=== PATIENT | male | born 1945 | race Caucasian/White ===

== ENCOUNTER 2019-04-23 06:55 | Inpatient (IN) ==
[2019-04-17 13:03] LABS: Basophils # (Auto) 0.04 K/mcL (0.00-0.30); Basophils % (Auto) 0.6 % (0.0-2.0); Eosinophils # (Auto) 0.22 K/mcL (0.00-0.70); Eosinophils % (Auto) 3.1 % (0.0-7.0); Hematocrit 42.4 % (40.1-51.0); Hemoglobin 13.5 g/dL (13.7-17.5); Lymphocytes # (Auto) 1.21 K/mcL (1.50-4.80); Lymphocytes % (Auto) 17.1 % (15.5-49.0); Mean Cell Volume 95.5 fL (80.0-100.0); Mean Corpuscular HGB Conc 31.8 g/dL (31.0-36.0); Mean Platelet Volume 10.7 fL (7.4-10.4); Monocytes # (Auto) 0.44 K/mcL (0.10-0.90); Monocytes % (Auto) 6.2 % (1.0-12.0); Platelet Count 257 K/mcL (140-440); RBC 4.44 M/mcL (4.63-6.08); Red Cell Distribution Width 13.3 % (11.5-14.5); WBC 7.1 K/mcL (4.50-11.00)
[2019-04-17 13:05] LABS: Blood Urea Nitrogen 28 mg/dl (8-23); Calcium 9.7 mg/dl (8.6-10.4); Carbon Dioxide 25 mmol/L (22-30); Chloride 98 mmol/L (96-108); Glomerular Filtration Rate 67; Glucose 118 mg/dL (70-105)
[2019-04-17 13:10] LABS: Estimated Average Glucose(eAG) 137 mg/dL; Hemoglobin A1C 6.4 % HGB (4.0-6.0)
[2019-04-17 13:32] LABS: Prothrombin Time 12.9 sec (11.9-14.5)
[2019-04-17 13:39] LABS: Appearance,Urine CLEAR; Bilirubin,Urine NEG (NEG); Color,Urine YELLOW; Culture Indicated,Urine NO; Glucose,Urine (UA) NEGATIVE (NEG); Ketones,Urine NEG (NEG); Leukocyte Esterase,Urine NEG /uL (NEG); Nitrate,Urine NEG (NEG); Protein,Urine NEG (NEG); Specific Gravity,Urine 1.019 (1.000-1.035); Urine Blood NEG mg/dL (<0.03); Urobilinogen,Urine NEG (NEG)
[~2019-04-23 06:55] MED LIST: IPRATROPIUM/ALBUTEROL 3 ML AMPUL.NEB NEB PRN; PREGABALIN 75 MG CAPSULE PO SCH; SCOPOLAMINE 1 PATCH PATCH TOPICAL PRN; ceFAZolin 2 GM in DEXTROSE 5% IN WATER 50 ML IV SCH; oxyCODONE 10 MG TAB.ER.12H PO SCH
[2019-04-23] MEDS ORDERED: MIDAZOLAM 2 MG/2 ML VIAL IV ONE (09:00)
[2019-04-23] MEDS ORDERED: TRANEXAMIC ACID 1,000 MG/10 ML VIAL IV ONE (09:00)
[2019-04-23] MEDS ORDERED: ESMOLOL 100 MG/10 ML VIAL IV ONE (09:00)
[2019-04-23] MEDS ORDERED: GLYCOPYRROLATE 0.2 MG/ML VIAL IV ONE (09:00)
[2019-04-23] MEDS ORDERED: KETAMINE 100 MG/ML ML IV ONE (09:00)
[2019-04-23] MEDS ORDERED: PHENYLEPHRINE 10 MG/ML VIAL IV ONE (09:00)
[2019-04-23] MEDS ORDERED: PROPOFOL 200 MG/20 ML VIAL IV ONE (09:00)
[2019-04-23] MEDS ORDERED: LIDOCAINE HCL/PF 100 MG/5 ML SYRINGE IV ONE (09:00)
[2019-04-23] MEDS ORDERED: DEXAMETHASONE 10 MG/ML VIAL IV ONE (09:00)
[2019-04-23] MEDS ORDERED: ROPIVACAINE HCL/PF 30 ML VIAL IJ ONE (09:00)
[2019-04-23] MEDS ORDERED: fentaNYL 250 MCG/5 ML VIAL IV ONE (09:00)
[2019-04-23] MEDS ORDERED: ONDANSETRON 4 MG/2 ML VIAL IV ONE (09:00)
[2019-04-23] MEDS ORDERED: GENTAMICIN SULFATE 800 MG/20 ML VIAL IR ONE (09:23)
--- NOTE | 2019-04-23 10:28 | Brief Operative Note ---
Date of procedure: 04/23/19 Pre-op diagnosis: left shoulder failed rotator cuff repair with oa Post-op diagnosis: same Procedure: left reverse total shoulder arthroplasty Grafts/Implants: Yes Anesthesia: GETA Complications: none Surgeon: Mikhail Yoon Energy Sales Broker: Kevin Roman Estimated blood loss (cc): 150 Specimens Removed/Pathology: none sent Condition: stable Disposition: PACU
--- NOTE | 2019-04-23 10:29 | Discharge Summary ---
Ortho Discharge - TSA - Patient Instructions Diet: Regular Diet Activity: non weight bearing Total Shoulder Protocol: Leave immobilizer in place except for bathing and ROM. Abduction pillow. Continue to wear sling until seen by physician. Codman Pendulum : These exercises use momentum produced by your body to move your shoulder joint. Bend your knees and shift your weight to your front leg, then back, allowing your arm to swing in the same directions. Using the same technique, alternately shift your weight between your right and left legs, allowing your arm to swing from side to side. These exercises are also performed in counterclockwise and clockwise circular motions. Typically these exercises are performed several times per day, for a set number repetitions or minutes, such as 20 times in a row or 5 minutes at a time. Dressing Care: May shower in 2 days - Follow Up Plan Disposition: Home, Self-Care Prognosis: Good Rehab Potential: Good I certify that the patient requires SNF services: No Overall status at discharge: patient is progressing back to baseline
[2019-04-23] MEDS ORDERED: TADALAFIL 20 MG PO SCH (10:30)
[2019-04-23] MEDS ORDERED: FLEETS ADULT ENEMA PR PRN (10:31)
[2019-04-23] MEDS ORDERED: ONDANSETRON 4 MG/2 ML VIAL IV PRN ×2 (10:31→11:00)
[2019-04-23] MEDS ORDERED: MAGNESIUM HYDROXIDE 30 ML ORAL.SUSP PO PRN (10:31)
[2019-04-23] MEDS ORDERED: DEXTROSE 50% 50 ML VIAL IV PRN (10:31)
[2019-04-23] MEDS ORDERED: POLYETHYLENE GLYCOL 3350 17 GM PACKET PO PRN (10:31)
[2019-04-23] MEDS ORDERED: TRANEXAMIC ACID 1,000 MG/10 ML VIAL IV SCH (10:31)
[2019-04-23] MEDS ORDERED: BISACODYL 10 MG SUPP.RECT PR PRN (10:31)
[2019-04-23] MEDS ORDERED: DEXTROSE 31 GM ORAL.SUSP PO PRN (10:31)
[2019-04-23] MEDS ORDERED: BENZOCAINE/MENTHOL 1 LOZENGE PO PRN (10:31)
[2019-04-23] MEDS ORDERED: HYDROcodone/APAP 10/325MG TABLET PO PRN (10:31)
[2019-04-23] MEDS ORDERED: ONDANSETRON 4 MG ODT TABLET SL PRN (10:31)
[2019-04-23] MEDS ORDERED: METHOCARBAMOL 750 MG TABLET PO PRN (10:31)
[2019-04-23] MEDS ORDERED: KETOROLAC 15 MG/ML VIAL IV PRN (11:00)
[2019-04-23] MEDS ORDERED: fentaNYL 100 MCG/2 ML VIAL IV PRN (11:00)
[2019-04-23] MEDS ORDERED: METHOCARBAMOL 1,000 MG/10 ML VIAL IV PRN (11:00)
[2019-04-23] MEDS ORDERED: HYDROmorphone 2 MG/ML VIAL IV PRN (11:00)
[2019-04-23] MEDS ORDERED: IPRATROPIUM/ALBUTEROL 3 ML AMPUL.NEB NEB PRN (11:00)
[2019-04-23] MEDS ORDERED: LACTATED RINGERS 1,000 ML IV SCH (11:00)
[2019-04-23] MEDS ORDERED: ACETAMINOPHEN 1,000 MG/100 ML BOTTLE IV ONE (11:00)
[2019-04-23] MEDS ORDERED: MEPERIDINE 25 MG/ML SYRINGE IV PRN (11:00)
[2019-04-23] MEDS: KETOROLAC 15 MG/ML VIAL IV PRN (11:10)
--- NOTE | 2019-04-23 11:10 | Operative Note ---
DATE OF OPERATION: 04/23/2019 PREOPERATIVE DIAGNOSES: 1. Left shoulder failed rotator cuff repair and superior capsular reconstruction. 2. Left shoulder advancing osteoarthritis. POSTOPERATIVE DIAGNOSES: 1. Left shoulder failed rotator cuff repair and superior capsular reconstruction. 2. Left shoulder advancing osteoarthritis. PROCEDURE: Left reverse total shoulder arthroplasty. SURGEON: Sharita Yoon M.D. OENOLOGIST SURGEON: Kevin Roman PA-C. This provider's expertise and technical skill were required throughout the case. The GRISEL assisted with preoperative coordination, intraoperative retraction, wound closure, dressing and splint application, as well as postoperative documentation and care coordination. ANESTHESIA: General. ESTIMATED BLOOD LOSS: 150 mL COMPLICATIONS: None noted. SPECIMENS REMOVED: None. DRAINS: None. IMPLANTS: DePuy Delta Xtend cementless metaglene KNOWLES coated, DePuy Delta Xtend locking metaglene screw 4.5 x 30 x2, 4.5 x 18 nonlocking x2, DePuy Delta Xtend eccentric glenosphere 38 mm, DePuy Delta Xtend humeral stem size 12 KNOWLES coated cementless, DePuy Delta Xtend modular eccentric epiphysis size 1 left KNOWLES coated cementless, DePuy Delta Xtend humeral polyethylene cup standard 38 +6. INDICATIONS: The patient has had a longstanding history of worsening pain in the shoulder that has failed conservative treatment. Radiographs have confirmed advanced degenerative joint disease and a failed rotator cuff. After a long discussion about treatment options, the patient elected to proceed with a reverse total shoulder arthroplasty. The risks and benefits were discussed with the patient in detail including, but not limited to, the risks of anesthesia, problems with the heart or lungs related to anesthesia, infection, compromise or injury to the nerves and blood vessels, deep venous thrombosis, pulmonary embolism, pneumonia, continued pain after surgery, worsening pain or symptoms after surgery, swelling, loss of motion, instability, fracture, arm length discrepancy, and need for repeat surgery. DESCRIPTION OF PROCEDURE: The patient was seen in the preanesthesia waiting room where all questions were answered and the correct side and site were identified and marked. The patient was transferred to the operating room and administered the anesthetic and given preoperative antibiotics. A timeout was then called. The patient was placed in the modified beach chair position with all prominences well padded. The extremity was prepped and draped from the fingers up to the neck. A standard deltopectoral skin incision was created. Dissection was carried down to the deltopectoral groove and the cephalic vein was isolated medially and retracted laterally with the deltoid. Retractors were placed and the coracobrachialis was split up to the coracoacromial ligament allowing retraction of the conjoined tendon. We split the subscapularis 1 cm medial to the bicipital groove and extended the split into the rotator interval. This was tagged for later repair. The supraspinatus and infraspinatus had been previously torn and retracted. A capsular release was performed in a posterior subperiosteal direction along the humerus. The humeral head was then dislocated. We established intramedullary access and hand reamed up to get good cortical chatter with the [employer] Delta XTEND reverse total shoulder instrumentation. We then used the intramedullary guide and set to about 5 degrees of retroversion. The proximal humerus cut was performed and osteophytes were removed. A metal protector plate was then placed. Attention was then turned to the glenoid. Retractors were placed for optimal visualization and the labrum was excised in its entirety. A centralizing Steinmann pin was placed just into the posterior inferior quadrant in a standard fashion. We reamed over the pin to remove all the cartilage and get to a good base for the prosthesis. The drill was then placed over for the central peg. A cementless Metaglene was then impacted into place. We then drilled, measured, and placed the four screws starting inferior, then superior, then anterior, and finally posterior. The superior locking screw was lined up at the base of the coracoid process. We then impacted the head onto the Metaglene and tightened down in a standard fashion. Attention was then turned back to the humerus. Proximal reaming was performed off the intramedullary guide into the humeral head, using the eccentric guide to allow best coverage. We again set version and broached up to a stable implant. Trials were placed and good tension, motion, and stability were obtained at this point. Trials were removed and the final press fit femoral prosthesis was impacted into place with measured version. The final polyethylene was placed and the shoulder was reduced and again checked for motion, tension, and stability. We irrigated with 3 liters of antibiotic saline and closed the subscapularis with # 2 FiberWire. We irrigated again and closed the deltopectoral interval with several # 0 Vicryl figure of eight sutures. The subcutaneous layer was closed with 2-0 Vicryl and the skin was closed with Dermabond. A sterile pressure dressing was applied and the patient was placed into an abduction sling. All needle and sponge counts were correct. The patient was transferred to the recovery room in stable condition. JDamian:cooper Job ID: [id number] Doc ID: [id number] Sharita Yoon MD
[2019-04-23] MEDS: LACTATED RINGERS 1,000 ML IV SCH ×2 (11:15→18:52)
--- NOTE | 2019-04-23 11:57 | XRay Report ---
CLINICAL INFORMATION: Post-Op Total Shoulder COMPARISON: None. FINDINGS: Total shoulder prosthesis in anatomic alignment. No osseous abnormality. Soft tissue swelling seen as expected. IMPRESSION: Negative Interpreted and Authenticated by: Mikhail Fonseca 04/23/19
[2019-04-23] MEDS: INSULIN LISPRO 1 UNIT/0.01 ML UNIT SQ SCH ×3 (12:39→19:25)
[2019-04-23] MEDS ORDERED: TAMSULOSIN 0.4 MG CAPSULE PO ONE (15:54)
[2019-04-23] MEDS: hydrALAZINE 25 MG TABLET PO SCH ×2 (15:56→19:21)
[2019-04-23] MEDS: 0.9 % SODIUM CHLORIDE 10 ML SYRINGE IV SCH ×2 (15:56→19:25)
[2019-04-23] MEDS: CARVEDILOL 6.25 MG TABLET PO SCH ×2 (16:59→18:18)
[2019-04-23] MEDS: metFORMIN 850 MG TABLET PO SCH (16:59)
[2019-04-23] MEDS: ceFAZolin 1 GM VIAL IV SCH (18:26)
[2019-04-23] MEDS: DOCUSATE SODIUM 100 MG CAPSULE PO SCH (19:20)
[2019-04-23] MEDS ORDERED: SENNOSIDES 1 TABLET PO SCH (21:00)
[2019-04-23] MEDS ORDERED: amLODIPine 10 MG TABLET PO SCH (21:00)
[2019-04-24] MEDS: 0.9 % SODIUM CHLORIDE 10 ML SYRINGE IV SCH ×2 (02:00→04:50)
[2019-04-24] MEDS: ceFAZolin 1 GM VIAL IV SCH (02:00)
[2019-04-24] MEDS: LACTATED RINGERS 1,000 ML IV SCH (02:52)
[2019-04-24] MEDS: KETOROLAC 15 MG/ML VIAL IV PRN (04:51)
[2019-04-24 07:37] LABS: Hematocrit 36.2 % (40.1-51.0); Hemoglobin 11.7 g/dL (13.7-17.5)
--- NOTE | 2019-04-24 07:56 | Orthopedic Progress Note ---
Subjective Patient information: Note initiated : 04/24/19 at 7:54 am Service Date, if different from initiated Date: [] Patient: Jose Leung 73 y/o M admitted on 04/23/19 for Left Reverse Total Shoulder Arthroplasty. Chief Complaint: [] Interval history: doing well. no complaints Objective Vital signs: Vital Signs Temp Pulse Pulse Resp BP Pulse Ox 04/24/19 02:33 98.4 F 91 H 20 147/83 94 04/23/19 22:46 97.9 F 98 H 18 113/68 95 04/23/19 19:11 98.1 F 111 H 20 135/69 91 04/23/19 19:10 16 04/23/19 17:26 98 F 113 H 16 142/81 93 04/23/19 13:32 93 H 143/82 97 04/23/19 13:17 89 137/77 97 04/23/19 12:47 92 H 143/79 96 04/23/19 12:32 97 H 94 04/23/19 12:17 90 147/81 96 04/23/19 12:02 88 151/80 96 04/23/19 11:47 89 151/81 94 04/23/19 11:33 98.3 F 88 16 154/79 93 04/23/19 11:20 87 16 149/77 94 04/23/19 11:05 88 14 159/85 96 04/23/19 11:00 89 14 134/72 100 04/23/19 10:55 88 12 122/62 100 04/23/19 10:50 97.0 F 83 12 120/65 100 Intake and Output 04/23/19 04/24/19 04/24/19 21:59 05:59 13:59 Intake Total 240 500 Output Total 200 200 Balance 40 300 Intake: Oral 240 500 Output: Void Amount 200 200 Other: Meal Dinner Percent of Meal Consumed 100% Feeding Ability Independent Urine Appearance Clear Clear Urine Color Pale Pale Urine Odor Normal Normal # Voids 1 Weight 207 lb 4.8 oz Intake & Output: Intake & Output 04/23/19 04/24/19 04/24/19 21:59 05:59 13:59 Intake Total 240 500 Output Total 200 200 Balance 40 300 Weight 207 lb 4.8 oz Intake: Oral 240 500 Output: Void Amount 200 200 Other: Meal Dinner Percent of Meal Consumed 100% Feeding Ability Independent Urine Appearance Clear Clear Urine Color Pale Pale Urine Odor Normal Normal # Voids 1 Incision: Yes healing Incision clean and dry: Yes Dressing: Yes clean, Yes dry, Yes intact Weight bearing status: full Neurological exam IM: No abnormal gait, Yes alert, Yes oriented X3, Yes motor sensory intact, Yes neurovascular intact Extremities exam IM: No calf tenderness, Yes Foot pink and warm, Yes neurovascular intact - Labs CBC & BMP: 04/24/19 05:50 04/17/19 09:45 Labs: Orthopedic Labs 04/17/19 09:45 PT 12.9 INR 1.0 04/24/19 04/17/19 05:50 09:45 Hgb 11.7 L 13.5 L Hct 36.2 L 42.4 Assessment and Plan (1) Rotator cuff tear A: s/p reverse tsa P: doing well pain control nwb sling home today Status: Acute
[2019-04-24] MEDS: DOCUSATE SODIUM 100 MG CAPSULE PO SCH (08:11)
[2019-04-24] MEDS: CARVEDILOL 6.25 MG TABLET PO SCH (08:11)
[2019-04-24] MEDS: hydrALAZINE 25 MG TABLET PO SCH (08:11)
[2019-04-24] MEDS: metFORMIN 850 MG TABLET PO SCH (08:12)
[2019-04-24] MEDS: INSULIN LISPRO 1 UNIT/0.01 ML UNIT SQ SCH (08:16)
[2019-04-24] MEDS ORDERED: TESTOSTERONE TOPICAL SCH (09:00)
[2019-04-24] MEDS ORDERED: TAMSULOSIN 0.4 MG CAPSULE PO SCH (09:00)
[2019-04-24] MEDS ORDERED: LISINOPRIL 20 MG TABLET PO SCH (09:00)
[2019-04-24] MEDS ORDERED: CHLORTHALIDONE 25 MG TABLET PO SCH (09:00)
[2019-04-24] MEDS ORDERED: ASPIRIN 81 MG TAB.CHEW PO SCH (09:00)
[2019-04-24] MEDS ORDERED: ATORVASTATIN 40 MG TABLET PO SCH (09:00)
[2019-04-24] MEDS ORDERED: EZETIMIBE 10 MG TABLET PO SCH (09:00)
[2019-04-24] MEDS ORDERED: PNEUMOCOCCAL 23-VAL P-SAC VAC 0.5 ML SYRINGE IM ONE (10:00)
== END 2019-04-24 09:55 | disposition home or self-care (01) | DRG 483 ==
LOC: MEDSUR 06:55
PROVIDERS: ADMIT Orthopaedic Surgery Sports Medicine; ATTEND Orthopaedic Surgery Sports Medicine

== ENCOUNTER 2019-11-05 08:12 | Inpatient (IN) ==
[2019-11-05] MEDS ORDERED: ONDANSETRON 4 MG ODT TABLET SL ONE (08:42)
[2019-11-05] MEDS ORDERED: 0.9 % SODIUM CHLORIDE 1,000 ML IV ONE (08:42)
[2019-11-05] MEDS ORDERED: DIPH,PERTUSS(ACELL),TET VAC/PF 0.5 ML SYRINGE IM ONE (08:42)
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
[2019-11-05] MEDS: HYDROmorphone 0.5 MG/0.5 ML SYRINGE IV PRN ×2 (09:14→09:47)
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
--- NOTE | 2019-11-05 09:25 | Cat Scan Report ---
INDICATION: FALL COMPARISON: Previous MRI scan dated 10/19/2017 TECHNIQUE: Axial noncontrast-enhanced images through the brain. Sagittally and coronally reformatted images. FINDINGS: Cerebral hemispheres:Negative. No intra-axial abnormality. No intra-axial hematoma. No localized mass effect. Brain volume is within normal limits. No hydrocephalus Brainstem and cerebellum:No intra-axial abnormality Extra-axial:No acute hemorrhage. No subdural or epidural hematoma. No subarachnoid hemorrhage. Basilar cisterns are normal Calvarial:No calvarial fracture. No lytic lesion Temporal bones are negative. No destructive lesions Soft tissue, orbits, sinuses:There is left frontal extracranial soft tissue swelling consistent with scalp hematoma. There is minimal soft tissue thickening within the left maxillary sinus consistent with mild inflammatory disease. No evidence for hemorrhage. No detectable fracture IMPRESSION: 1. No acute intracranial abnormality 2. Extracranial left frontal soft tissue injury consistent with scalp hematoma. The exam was performed using radiation dose optimization techniques including, but not limited to, automated exposure control, adjustment of the mA and/or kV according to patient size and use of iterative reconstruction technique. Interpreted and Authenticated by: Mikhail Lugo 11/05/19
--- NOTE | 2019-11-05 09:28 | Cat Scan Report ---
INDICATION: FALL COMPARISON: None. TECHNIQUE: Axial thin section images through the cervical spine. Sagittally and coronally reformatted images. The exam was performed using radiation dose optimization techniques including, but not limited to, automated exposure control, adjustment of the mA and/or kV according to patient size and use of iterative reconstruction technique. FINDINGS: Vertebral bodies, spinous processes:No vertebral body or spinous process fracture. No acute abnormality. Alignment is anatomic without anterolisthesis Normal odontoid process. No fracture. Occipital condyles and C1 are negative. No atlantoaxial subluxation. Facets:No perched or locked facet. No facet complex fracture. Disc spaces:Negative. No significant degenerative disc disease. There are soft tissue calcifications consistent with DISH Temporal bones:Negative. No basilar skull fracture Cervical soft tissues:Negative. No prevertebral soft tissue swelling. No focal soft tissue mass or acute abnormality. Atherosclerotic calcification within the distal right common carotid artery and proximal right internal carotid artery Lung apices:Not visualized IMPRESSION: 1. No cervical spine fracture. No acute abnormality 2. Atherosclerotic calcification of the distal right common carotid artery and proximal right internal carotid artery Interpreted and Authenticated by: Mikhail Lugo 11/05/19
[2019-11-05 09:32] LABS: POC Blood Urea Nitrogen 25 mg/dl (8-23); POC CO2 24 mmol/L (22-30); POC Chloride 98 mmol/L (96-108); POC Creatinine 1.1 mg/dl (0.7-1.2); POC Glucose, Random 189 mg/dL (70-105); POC Potassium 3.2 mmol/L (3.3-5.1); POC Sodium 138 mmol/L (133-145)
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
[2019-11-05 10:00] LABS: Basophils # (Auto) 0.04 K/mcL (0.00-0.30); Basophils % (Auto) 0.4 % (0.0-2.0); Eosinophils # (Auto) 0.17 K/mcL (0.00-0.70); Eosinophils % (Auto) 1.8 % (0.0-7.0); Granulocytes % (Auto) 80.3 % (38.0-78.0); Hematocrit 35.6 % (40.1-51.0); Hemoglobin 11.2 g/dL (13.7-17.5); Lymphocytes # (Auto) 1.12 K/mcL (1.50-4.80); Lymphocytes % (Auto) 11.7 % (15.5-49.0); Mean Cell Volume 97.3 fL (80.0-100.0); Mean Corpuscular HGB Conc 31.5 g/dL (31.0-36.0); Mean Platelet Volume 10.4 fL (7.4-10.4); Monocytes # (Auto) 0.56 K/mcL (0.10-0.90); Monocytes % (Auto) 5.8 % (1.0-12.0); Platelet Count 207 K/mcL (140-440); RBC 3.66 M/mcL (4.63-6.08); Red Cell Distribution Width 13.2 % (11.5-14.5); WBC 9.6 K/mcL (4.50-11.00)
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
[2019-11-05] MEDS ORDERED: HYDROmorphone 2 MG TABLET PO PRN ×2 (12:25→13:35)
[2019-11-05] MEDS ORDERED: ONDANSETRON 4 MG/2 ML VIAL IV PRN ×2 (12:25→13:35)
[2019-11-05] MEDS ORDERED: NALOXONE HCL 0.4 MG/ML VIAL IV PRN ×2 (12:25→13:35)
[2019-11-05] MEDS ORDERED: ACETAMINOPHEN 325 MG TABLET PO PRN ×2 (12:25→13:35)
[2019-11-05] MEDS ORDERED: 0.9 % SODIUM CHLORIDE 1,000 ML IV SCH (12:30)
[2019-11-05] MEDS ORDERED: traMADol 50 MG TABLET PO PRN (12:34)
[2019-11-05 13:02] LABS: Thyroid Stimulating Hormone 2.23 uIU/ml (0.27-5.01); proBNP < 50.0 pg/ml (0-125)
[2019-11-05 13:06] LABS: Estimated Average Glucose(eAG) 131 mg/dL; Hemoglobin A1C 6.2 % HGB (4.0-6.0)
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
[2019-11-05] MEDS ORDERED: DEXTROSE 31 GM ORAL.SUSP PO PRN ×2 (13:31→13:35)
[2019-11-05] MEDS ORDERED: DEXTROSE 50% 50 ML VIAL IV PRN ×2 (13:31→13:35)
[2019-11-05] MEDS ORDERED: INSULIN LISPRO 1 UNIT/0.01 ML UNIT SQ SCH ×2 (13:45)
[2019-11-05] MEDS ORDERED: 0.9 % SODIUM CHLORIDE 10 ML SYRINGE IV SCH (14:00)
[2019-11-05] MEDS ORDERED: LISINOPRIL 20 MG TABLET PO ONE (14:21)
[2019-11-05] MEDS ORDERED: CARVEDILOL 6.25 MG TABLET PO ONE (14:21)
[2019-11-05] MEDS: 0.9 % SODIUM CHLORIDE 1,000 ML IV SCH (14:43)
[2019-11-05] MEDS: 0.9 % SODIUM CHLORIDE 10 ML SYRINGE IV SCH ×2 (14:44→21:35)
[2019-11-05] MEDS: INSULIN LISPRO 1 UNIT/0.01 ML UNIT SQ SCH ×3 (14:45→21:35)
[2019-11-05] MEDS ORDERED: TAMSULOSIN 0.4 MG CAPSULE PO SCH (21:00)
[2019-11-05] MEDS ORDERED: VITAMIN D3 1,000 UNIT TABLET PO SCH (21:00)
[2019-11-05] MEDS ORDERED: amLODIPine 10 MG TABLET PO SCH (21:00)
[2019-11-05] MEDS ORDERED: DOCUSATE SODIUM 100 MG CAPSULE PO SCH (21:00)
[2019-11-05] MEDS: TAMSULOSIN 0.4 MG CAPSULE PO SCH (21:34)
[2019-11-05] MEDS: VITAMIN D3 1,000 UNIT TABLET PO SCH (21:34)
[2019-11-05] MEDS: amLODIPine 10 MG TABLET PO SCH (21:35)
[2019-11-05] MEDS: DOCUSATE SODIUM 100 MG CAPSULE PO SCH (21:35)
[2019-11-06] MEDS: 0.9 % SODIUM CHLORIDE 1,000 ML IV SCH ×2 (00:55→10:11)
[2019-11-06] MEDS: 0.9 % SODIUM CHLORIDE 10 ML SYRINGE IV SCH ×4 (06:42→20:40)
[2019-11-06 06:47] LABS: Basophils # (Auto) 0.03 K/mcL (0.00-0.30); Basophils % (Auto) 0.3 % (0.0-2.0); Granulocytes % (Auto) 80.8 % (38.0-78.0); Hematocrit 33.8 % (40.1-51.0); Hemoglobin 11.2 g/dL (13.7-17.5); Lymphocytes # (Auto) 0.98 K/mcL (1.50-4.80); Lymphocytes % (Auto) 9.6 % (15.5-49.0); Mean Cell Volume 92.9 fL (80.0-100.0); Mean Corpuscular HGB Conc 33.1 g/dL (31.0-36.0); Mean Platelet Volume 10.2 fL (7.4-10.4); Monocytes # (Auto) 0.85 K/mcL (0.10-0.90); Monocytes % (Auto) 8.3 % (1.0-12.0); Platelet Count 209 K/mcL (140-440); RBC 3.64 M/mcL (4.63-6.08); Red Cell Distribution Width 13.2 % (11.5-14.5); WBC 10.3 K/mcL (4.50-11.00)
[2019-11-06 07:11] LABS: ALT/SGPT 16 U/l (0-40); AST/SGOT 18 U/l (0-37); Albumin 3.4 gm/dL (3.2-5.2); Albumin/Globulin Ratio 1.4 (1.0-2.3); Alkaline Phosphatase 54 U/L (39-117); Bilirubin,Total 0.5 mg/dL (0.0-1.0); Blood Urea Nitrogen 23 mg/dl (8-23); Calcium 8.5 mg/dl (8.6-10.4); Carbon Dioxide 25 mmol/L (22-30); Chloride 100 mmol/L (96-108); Globulin 2.4 gm/dL (2.2-3.7); Glomerular Filtration Rate 60; Glucose 159 mg/dL (70-105)
[2019-11-06] MEDS ORDERED: THROMBIN (BOVINE) 5,000 UNIT VIAL TOPICAL ONE ×2 (07:36→07:37)
[2019-11-06] MEDS ORDERED: BUPIVACAINE 0.25% 50 ML VIAL IJ ONE (07:37)
[2019-11-06] MEDS ORDERED: CARVEDILOL 6.25 MG TABLET PO SCH (08:00)
[2019-11-06] MEDS ORDERED: FERROUS SULFATE 325 MG TABLET PO SCH (08:00)
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
[2019-11-06] MEDS: INSULIN LISPRO 1 UNIT/0.01 ML UNIT SQ SCH ×4 (08:05→20:32)
[2019-11-06] MEDS: FOLIC ACID 1 MG TABLET PO SCH (08:06)
[2019-11-06] MEDS: FERROUS SULFATE 325 MG TABLET PO SCH (08:06)
[2019-11-06] MEDS: DOCUSATE SODIUM 100 MG CAPSULE PO SCH ×2 (08:06→20:32)
[2019-11-06] MEDS: EZETIMIBE 10 MG TABLET PO SCH (08:06)
[2019-11-06] MEDS: TAMSULOSIN 0.4 MG CAPSULE PO SCH ×2 (08:06→20:33)
[2019-11-06] MEDS: LISINOPRIL 20 MG TABLET PO SCH (08:21)
[2019-11-06] MEDS: CHLORTHALIDONE 25 MG TABLET PO SCH (08:21)
[2019-11-06] MEDS: ATORVASTATIN 40 MG TABLET PO SCH (08:22)
[2019-11-06] MEDS: CARVEDILOL 6.25 MG TABLET PO SCH (08:22)
[2019-11-06] MEDS ORDERED: FOLIC ACID 1 MG TABLET PO SCH (09:00)
[2019-11-06] MEDS ORDERED: EZETIMIBE 10 MG TABLET PO SCH (09:00)
[2019-11-06] MEDS ORDERED: ATORVASTATIN 40 MG TABLET PO SCH (09:00)
[2019-11-06] MEDS ORDERED: CHLORTHALIDONE 25 MG TABLET PO SCH (09:00)
[2019-11-06] MEDS ORDERED: LISINOPRIL 20 MG TABLET PO SCH (09:00)
[2019-11-06] MEDS ORDERED: ceFAZolin 2 GM in DEXTROSE 5% IN WATER 50 ML IV SCH (09:45)
[2019-11-06] MEDS ORDERED: PHENYLEPHRINE 10 MG/ML VIAL IV ONE (10:29)
[2019-11-06] MEDS ORDERED: fentaNYL 100 MCG/2 ML VIAL IV ONE (10:29)
[2019-11-06] MEDS ORDERED: MIDAZOLAM 2 MG/2 ML VIAL IV ONE (10:29)
[2019-11-06] MEDS ORDERED: TRANEXAMIC ACID 1,000 MG/10 ML VIAL IV ONE (10:29)
[2019-11-06] MEDS ORDERED: LIDOCAINE HCL/PF 100 MG/5 ML SYRINGE IV ONE (10:29)
[2019-11-06] MEDS ORDERED: ePHEDrine 50 MG/ML AMPUL IV ONE (10:29)
[2019-11-06] MEDS ORDERED: HYDROmorphone 1 MG/ML SYRINGE IV ONE (10:29)
[2019-11-06] MEDS ORDERED: SUCCINYLCHOLINE 20 MG/ML ML IV ONE (10:29)
[2019-11-06] MEDS ORDERED: ONDANSETRON 4 MG/2 ML VIAL IV ONE (10:29)
[2019-11-06] MEDS ORDERED: DEXAMETHASONE 10 MG/ML VIAL IV ONE (10:29)
[2019-11-06] MEDS ORDERED: MAGNESIUM SULFATE 2 GM/50 ML BAG IV ONE ×2 (10:29→10:40)
[2019-11-06] MEDS ORDERED: GLYCOPYRROLATE 0.2 MG/ML VIAL IV ONE (10:29)
[2019-11-06] MEDS ORDERED: KETOROLAC 30 MG/ML VIAL IV ONE (10:29)
[2019-11-06] MEDS ORDERED: PROPOFOL 200 MG/20 ML VIAL IV ONE (10:29)
[2019-11-06] MEDS ORDERED: SCOPOLAMINE 1 PATCH PATCH TOPICAL PRN (10:30)
[2019-11-06] MEDS ORDERED: IPRATROPIUM/ALBUTEROL 3 ML AMPUL.NEB NEB PRN ×2 (10:30→14:27)
[2019-11-06] MEDS ORDERED: VANCOMYCIN 1 GM VIAL TOPICAL SCH (14:15)
[2019-11-06] MEDS ORDERED: LACTATED RINGERS 250 ML IV PRN (14:27)
[2019-11-06] MEDS ORDERED: ACETAMINOPHEN 1,000 MG/100 ML BOTTLE IV ONE (14:27)
[2019-11-06] MEDS ORDERED: NALOXONE HCL 0.4 MG/ML VIAL IV PRN (14:27)
[2019-11-06] MEDS ORDERED: FLUMAZENIL 0.1 MG/ML ML IV PRN (14:27)
[2019-11-06] MEDS ORDERED: METHOCARBAMOL 1,000 MG/10 ML VIAL IV PRN (14:27)
[2019-11-06] MEDS ORDERED: PROMETHAZINE 25 MG/ML VIAL IV PRN (14:27)
[2019-11-06] MEDS ORDERED: LACTATED RINGERS 1,000 ML IV SCH (14:30)
[2019-11-06] MEDS ORDERED: GUM MASTIC/STORAX/MSAL/ALCOHOL 1 DOSE DROPERETTE TOPICAL ONE (14:37)
[2019-11-06] MEDS ORDERED: BENZOCAINE/MENTHOL 1 LOZENGE PO PRN (14:49)
[2019-11-06] MEDS ORDERED: oxyCODONE/APAP 5/325MG TABLET PO PRN (14:49)
--- NOTE | 2019-11-06 14:49 | Brief Operative Note ---
Brief Operative Note Date of procedure: 11/06/19 Pre-op diagnosis: L2 fracture Post-op diagnosis: same Procedure: fusion T11-L4 Grafts/Implants: Yes (nuvasive) Surgeon: Palmer Mark Estimated blood loss (cc): 100 Condition: stable Disposition: PACU
[2019-11-06] MEDS: fentaNYL 100 MCG/2 ML VIAL IV PRN ×2 (16:18→17:14)
--- NOTE | 2019-11-06 16:23 | XRay Report ---
INDICATION: Acute L2 fracture. TECHNIQUE: 4.2 minutes fluoroscopy utilized by Dr. Mark. 99.5 mGy exposure. Intraoperative spot films obtained IMPRESSION: 1. Intraoperative fluoroscopy 2. Thoracolumbar fusion for treatment of L2 fracture Interpreted and Authenticated by: Mikhail Lugo 11/06/19
[2019-11-06] MEDS: DEXTROSE 5%-1/2NS 1,000 ML IV SCH (17:39)
[2019-11-06] MEDS: HYDROmorphone 0.5 MG/0.5 ML SYRINGE IV PRN ×2 (17:45→20:32)
[2019-11-06] MEDS: ceFAZolin 1 GM VIAL IV SCH (18:15)
[2019-11-06] MEDS: METHOCARBAMOL 750 MG TABLET PO PRN (19:15)
[2019-11-06] MEDS: traMADol 50 MG TABLET PO PRN (19:32)
[2019-11-06] MEDS: VITAMIN D3 1,000 UNIT TABLET PO SCH (20:33)
[2019-11-06] MEDS: amLODIPine 10 MG TABLET PO SCH (20:33)
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
[2019-11-07] MEDS: HYDROmorphone 0.5 MG/0.5 ML SYRINGE IV PRN ×2 (00:30→23:25)
[2019-11-07] MEDS: HYDROmorphone 2 MG TABLET PO PRN ×7 (02:16→21:58)
[2019-11-07] MEDS: ceFAZolin 1 GM VIAL IV SCH (02:24)
[2019-11-07] MEDS: DEXTROSE 5%-1/2NS 1,000 ML IV SCH ×3 (03:03→21:59)
[2019-11-07] MEDS: 0.9 % SODIUM CHLORIDE 10 ML SYRINGE IV SCH ×6 (05:26→23:27)
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
[2019-11-07] MEDS: CHLORTHALIDONE 25 MG TABLET PO SCH (08:05)
[2019-11-07] MEDS: INSULIN LISPRO 1 UNIT/0.01 ML UNIT SQ SCH ×4 (08:05→21:09)
[2019-11-07] MEDS: LISINOPRIL 20 MG TABLET PO SCH (08:05)
[2019-11-07] MEDS: FERROUS SULFATE 325 MG TABLET PO SCH (08:05)
[2019-11-07] MEDS: EZETIMIBE 10 MG TABLET PO SCH (08:06)
[2019-11-07] MEDS: TAMSULOSIN 0.4 MG CAPSULE PO SCH ×2 (08:06→20:25)
[2019-11-07] MEDS: DOCUSATE SODIUM 100 MG CAPSULE PO SCH ×2 (08:06→20:25)
[2019-11-07] MEDS: CARVEDILOL 6.25 MG TABLET PO SCH (08:06)
[2019-11-07] MEDS: ATORVASTATIN 40 MG TABLET PO SCH (08:06)
[2019-11-07] MEDS: FOLIC ACID 1 MG TABLET PO SCH (08:07)
[2019-11-07 08:15] LABS: ALT/SGPT 13 U/l (0-40); AST/SGOT 25 U/l (0-37); Albumin 3.2 gm/dL (3.2-5.2); Albumin/Globulin Ratio 1.2 (1.0-2.3); Alkaline Phosphatase 48 U/L (39-117); Bilirubin,Total 0.3 mg/dL (0.0-1.0); Blood Urea Nitrogen 25 mg/dl (8-23); Calcium 7.8 mg/dl (8.6-10.4); Carbon Dioxide 23 mmol/L (22-30); Chloride 96 mmol/L (96-108); Globulin 2.6 gm/dL (2.2-3.7); Glomerular Filtration Rate 60; Glucose 234 mg/dL (70-105)
[2019-11-07 08:42] LABS: Basophils # (Auto) 0.02 K/mcL (0.00-0.30); Basophils % (Auto) 0.2 % (0.0-2.0); Eosinophils # (Auto) 0 K/mcL (0.00-0.70); Eosinophils % (Auto) 0 % (0.0-7.0); Granulocytes % (Auto) 89.6 % (38.0-78.0); Hematocrit 32.5 % (40.1-51.0); Hemoglobin 10.6 g/dL (13.7-17.5); Lymphocytes # (Auto) 0.61 K/mcL (1.50-4.80); Lymphocytes % (Auto) 4.6 % (15.5-49.0); Mean Cell Volume 94.5 fL (80.0-100.0); Mean Corpuscular HGB Conc 32.6 g/dL (31.0-36.0); Mean Platelet Volume 10.5 fL (7.4-10.4); Monocytes # (Auto) 0.74 K/mcL (0.10-0.90); Monocytes % (Auto) 5.6 % (1.0-12.0); Platelet Count 216 K/mcL (140-440); RBC 3.44 M/mcL (4.63-6.08); Red Cell Distribution Width 13.2 % (11.5-14.5); WBC 13.2 K/mcL (4.50-11.00)
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
[2019-11-07] MEDS: METHOCARBAMOL 750 MG TABLET PO PRN (20:25)
[2019-11-07] MEDS: POLYETHYLENE GLYCOL 3350 17 GM PACKET PO SCH (20:25)
[2019-11-07] MEDS: VITAMIN D3 1,000 UNIT TABLET PO SCH (20:26)
[2019-11-07] MEDS: amLODIPine 10 MG TABLET PO SCH (20:26)
[2019-11-08] MEDS: HYDROmorphone 2 MG TABLET PO PRN ×2 (02:03→05:55)
[2019-11-08] MEDS: METHOCARBAMOL 750 MG TABLET PO PRN (02:40)
[2019-11-08] MEDS: HYDROmorphone 0.5 MG/0.5 ML SYRINGE IV PRN ×3 (02:40→08:25)
[2019-11-08] MEDS: 0.9 % SODIUM CHLORIDE 10 ML SYRINGE IV SCH ×6 (05:33→20:48)
[2019-11-08] MEDS: traMADol 50 MG TABLET PO PRN (05:55)
[2019-11-08] MEDS: CARVEDILOL 6.25 MG TABLET PO SCH (07:24)
[2019-11-08] MEDS: FERROUS SULFATE 325 MG TABLET PO SCH (07:25)
[2019-11-08] MEDS: INSULIN LISPRO 1 UNIT/0.01 ML UNIT SQ SCH ×4 (07:34→20:42)
[2019-11-08 08:29] LABS: Basophils # (Auto) 0.03 K/mcL (0.00-0.30); Basophils % (Auto) 0.3 % (0.0-2.0); Eosinophils # (Auto) 0.11 K/mcL (0.00-0.70); Eosinophils % (Auto) 0.9 % (0.0-7.0); Granulocytes % (Auto) 80.8 % (38.0-78.0); Hematocrit 31.3 % (40.1-51.0); Hemoglobin 10.3 g/dL (13.7-17.5); Lymphocytes # (Auto) 1.22 K/mcL (1.50-4.80); Lymphocytes % (Auto) 10.3 % (15.5-49.0); Mean Cell Volume 93.7 fL (80.0-100.0); Mean Corpuscular HGB Conc 32.9 g/dL (31.0-36.0); Mean Platelet Volume 10.9 fL (7.4-10.4); Monocytes # (Auto) 0.91 K/mcL (0.10-0.90); Monocytes % (Auto) 7.7 % (1.0-12.0); Platelet Count 205 K/mcL (140-440); RBC 3.34 M/mcL (4.63-6.08); Red Cell Distribution Width 13.3 % (11.5-14.5); WBC 11.9 K/mcL (4.50-11.00)
[2019-11-08 08:30] LABS: ALT/SGPT 10 U/l (0-40); AST/SGOT 20 U/l (0-37); Albumin 3.2 gm/dL (3.2-5.2); Albumin/Globulin Ratio 1.2 (1.0-2.3); Alkaline Phosphatase 54 U/L (39-117); Bilirubin,Total 0.3 mg/dL (0.0-1.0); Calcium 8.2 mg/dl (8.6-10.4); Carbon Dioxide 27 mmol/L (22-30); Globulin 2.7 gm/dL (2.2-3.7); Glomerular Filtration Rate 84; Glucose 163 mg/dL (70-105)
[2019-11-08 08:31] LABS: Blood Urea Nitrogen 16 mg/dl (8-23); Chloride 95 mmol/L (96-108)
[2019-11-08] MEDS: DEXTROSE 5%-1/2NS 1,000 ML IV SCH ×2 (09:05→19:42)
[2019-11-08] MEDS: POLYETHYLENE GLYCOL 3350 17 GM PACKET PO SCH (09:07)
[2019-11-08] MEDS: EZETIMIBE 10 MG TABLET PO SCH (09:10)
[2019-11-08] MEDS: DOCUSATE SODIUM 100 MG CAPSULE PO SCH ×2 (09:10→20:44)
[2019-11-08] MEDS: FOLIC ACID 1 MG TABLET PO SCH (09:10)
[2019-11-08] MEDS: ATORVASTATIN 40 MG TABLET PO SCH (09:11)
[2019-11-08] MEDS: CHLORTHALIDONE 25 MG TABLET PO SCH (09:12)
[2019-11-08] MEDS: TAMSULOSIN 0.4 MG CAPSULE PO SCH ×2 (09:12→20:44)
[2019-11-08] MEDS: LISINOPRIL 20 MG TABLET PO SCH (09:27)
[2019-11-08 11:17] LABS: Hemoglobin A1C 6.4 % HGB (4.0-6.0)
[2019-11-08] MEDS: oxyCODONE/APAP 10/325MG TABLET PO PRN ×2 (12:37→20:44)
--- NOTE | 2019-11-08 15:00 | Orthopedic Progress Note ---
SUBJECTIVE Subjective Patient information: Note initiated : 11/08/19 at 2:58 pm Service Date, if different from initiated Date: [] Patient: Jose Leung 74 y/o M admitted on 11/05/19 for Fall. Chief Complaint: [] No issues Constitutional Vitals: Vital Signs Temp Pulse Resp BP Pulse Ox 99 F 77 16 129/72 94 11/08/19 11:59 11/08/19 11:59 11/08/19 11:59 11/08/19 11:59 11/08/19 11:59 Period Temp Pulse Resp BP Sys/Lucia Pulse Ox Last 24 Hr 97.9 F-99.1 F 77-89 16-18 129-143/72-76 92-96 Intake and Output 11/08/19 11/08/19 11/08/19 05:59 13:59 21:59 Intake Total 200 1000 Output Total 1479 2 Balance -1279 998 Intake & Output: Intake & Output 11/08/19 11/08/19 11/08/19 05:59 13:59 21:59 Intake Total 200 1000 Output Total 1479 2 Balance -1279 998 Intake: IV 1000 Dextrose 5%-1/2Ns IV Solution 1 1000 ,000 ml @ 100 mls/hr IV .Q10H [facility] Rx#:[id number] Oral 200 Output: Drainage 2 Right Posterior Back 2 Drainage 4 Right Posterior Back 4 Urine Catheter Amount 1475 Other: Urine Appearance Clear Clear Uretheral (Burns) Clear Urine Color Pale Pale Uretheral (Burns) Dark Yellow Urine Odor Normal Uretheral (Burns) Normal OBJ DATA Labs CBC & Chem 7: 11/08/19 06:20 11/08/19 06:20 Labs: Abnormal Lab Results 11/08/19 11/08/19 11/08/19 06:20 06:20 06:20 WBC 11.9 H RBC 3.34 L Hgb 10.3 L Hct 31.3 L MPV 10.9 H Gran % 80.8 H Lymph % (Auto) 10.3 L Gran # 9.61 H Lymph # (Auto) 1.22 L [place] # (Auto) 0.91 H Potassium 3.2 L Chloride 95 L BUN Glucose 163 H Hemoglobin A1c 6.4 H Calcium 8.2 L Total Protein 11/07/19 11/07/19 11/06/19 05:50 05:50 06:07 WBC 13.2 H RBC 3.44 L Hgb 10.6 L Hct 32.5 L MPV 10.5 H Gran % 89.6 H Lymph % (Auto) 4.6 L Gran # 11.81 H Lymph # (Auto) 0.61 L [place] # (Auto) Potassium Chloride BUN 25 H Glucose 234 H 159 H Hemoglobin A1c Calcium 7.8 L 8.5 L Total Protein 5.8 L 5.8 L 11/06/19 06:07 WBC RBC 3.64 L Hgb 11.2 L Hct 33.8 L MPV Gran % 80.8 H Lymph % (Auto) 9.6 L Gran # 8.29 H Lymph # (Auto) 0.98 L [place] # (Auto) Potassium Chloride BUN Glucose Hemoglobin A1c Calcium Total Protein Meds: Medications Acetaminophen (Tylenol) 650 mg PO Q6HP PRN; Protocol PRN Reason: Per Pain Protocol/Fever > 101 Amlodipine Besylate (Norvasc) 10 mg PO [facility] Last Admin: 11/07/19 20:26 Dose: 10 mg Documented by: Atorvastatin Calcium (Lipitor) 40 mg PO QDAY [facility] Last Admin: 11/08/19 09:11 Dose: 40 mg Documented by: Carvedilol (Coreg) 6.25 mg PO [facility] Last Admin: 11/08/19 07:24 Dose: 6.25 mg Documented by: Chlorthalidone (Hygroton) 25 mg PO QDAY [facility] Last Admin: 11/08/19 09:12 Dose: 25 mg Documented by: Dextrose (Dextrose 50%) 0 ml IV UD PRN PRN Reason: Hypoglycemia Diagnostic Test (Pha) (Accu-Chek) 1 each FS ACHS [facility] Last Admin: 11/08/19 11:37 Dose: 1 each Documented by: Docusate Sodium (Colace) 100 mg PO BID [facility] Last Admin: 11/08/19 09:10 Dose: 100 mg Documented by: Ezetimibe (Zetia) 10 mg PO QDAY [facility] Last Admin: 11/08/19 09:10 Dose: 10 mg Documented by: Ferrous Sulfate (Ferrous Sulfate) 325 mg PO [facility] Last Admin: 11/08/19 07:25 Dose: 325 mg Documented by: Folic Acid (Folic Acid) 5 mg PO QDAY [facility] Last Admin: 11/08/19 09:10 Dose: 5 mg Documented by: Glucose (Insta-Glucose) 15 gm PO PRN PRN PRN Reason: Hypoglycemia Hydromorphone HCl (Dilaudid) 0.5 mg IV Q2HP PRN; Protocol PRN Reason: Per Pain Protocol Last Admin: 11/08/19 08:25 Dose: 0.5 mg Documented by: Hydromorphone HCl (Dilaudid) 0 mg PO Q4HP PRN; Protocol PRN Reason: Per Pain Protocol Last Admin: 11/08/19 05:55 Dose: 4 mg Documented by: Dextrose/Sodium Chloride (Dextrose 5%-1/2ns Iv Solution) 1,000 mls @ 100 mls/hr IV .Q10H [facility] Last Admin: 11/08/19 09:05 Dose: 100 mls/hr Documented by: Ceftriaxone Sodium 2 gm/ (Dextrose) 50 mls @ 100 mls/hr IV Q12H [facility]; Protocol Insulin Human Lispro (Humalog) 0 unit SQ ACHS [facility]; Protocol Last Admin: 11/08/19 11:49 Dose: 2 unit Documented by: Lactulose (Cephulac) 10 gm PO DAILYP PRN PRN Reason: Constipation Lisinopril (Zestril) 40 mg PO DAILY [facility] Last Admin: 11/08/19 09:27 Dose: 40 mg Documented by: Methocarbamol (Robaxin) 750 mg PO Q6HP PRN PRN Reason: Muscle Spasm Last Admin: 11/08/19 02:40 Dose: 750 mg Documented by: Naloxone HCl (Narcan) 0.1 mg IV Q2MIN PRN PRN Reason: Opiate Reversal Ondansetron HCl (Zofran) 4 mg IV Q6HP PRN PRN Reason: Nausea And Vomiting Last Admin: 11/06/19 18:31 Dose: 4 mg Documented by: Oxycodone/Acetaminophen (Percocet 10-325mg) 0 tab PO Q4HP PRN; Protocol PRN Reason: Per Pain Protocol Last Admin: 11/08/19 12:37 Dose: 1 tab Documented by: Polyethylene Glycol (Miralax) 17 gm PO DAILY [facility] Last Admin: 11/08/19 09:07 Dose: 17 gm Documented by: Sodium Chloride (Saline Flush) 10 ml IV Q8 [facility] Last Admin: 11/08/19 05:33 Dose: Not Given Documented by: Sodium Chloride (Saline Flush) 10 ml IV Q8 [facility] Last Admin: 11/08/19 05:34 Dose: Not Given Documented by: Tamsulosin HCl (Flomax) 0.4 mg PO BID [facility] Last Admin: 11/08/19 09:12 Dose: 0.4 mg Documented by: Throat Lozenges (Cepacol) 1 lozenge PO PRN PRN PRN Reason: Sore Throat Tramadol HCl (Ultram) 50 mg PO Q6HP PRN; Protocol PRN Reason: Pain Last Admin: 11/08/19 05:55 Dose: 50 mg Documented by: Vitamin D (Vitamin D3) 2,000 unit PO HS [facility] Last Admin: 11/07/19 20:26 Dose: 2,000 unit Documented by: A/P Assessment and plan (1) Spinal fracture: Status: Acute Comment: mobilize with PT (2) L2 vertebral fracture: Status: Acute Comment: stabilized surgical. POst op therapy as per Dr. Mark Time Spent With Patient Time: Total time spent is greater than 50% in coordination of care (as documented) at patient's floor/unit and/or counseling patient:
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
--- NOTE | 2019-11-08 15:04 | Discharge Plan ---
Discharge Instructions - Spine Patient Instructions Spine Protocol: Limit bending and stooping. No heavy lifting. Wear brace/collar at all times except when showering and sleeping. Additional Dressing Instructions: May Shower 48 hours post-operative and replace with dry dressing after shower. Discharge Plan Patient/Caregiver Discharge Instructions Activity: as per physical therapy Diet: Regular Diet Activity Restrictions/Additional Instructions: Call [facility] to schedule appt as new patient if wounds do not heal within 2 weeks or appear to get worse. No referral needed. Prescriptions: No Action folic acid 1 mg tablet 5 mg PO QDAY 90 Days Qty: 450 RF: 1 atorvastatin 40 mg tablet 40 mg PO QDAY Qty: 90 RF: 3 trandolapril 4 mg tablet 4 mg PO QDAY Qty: 30 RF: 2 carvedilol 6.25 mg tablet 6.25 mg PO DAILY Qty: 30 RF: 2 amlodipine 10 mg tablet 10 mg PO HS Qty: 30 RF: 2 chlorthalidone 25 mg tablet 25 mg PO QDAY Qty: 30 RF: 2 C-Testosterone Topiclick 10 mg/0.25 mL gel See Rx Instructions topical QDAY Qty: 30 RF: 5 aspirin 81 mg tablet,delayed release (DR/EC) 81 mg PO QDAY RF: 0 cholecalciferol (vitamin D3) 2,000 unit capsule 2,000 unit PO HS RF: 0 ferrous sulfate 325 mg (65 mg iron) tablet 325 mg PO QDAY RF: 0 ezetimibe [Zetia] 10 mg tablet 10 mg PO QDAY Qty: 90 RF: 3 metformin 850 mg tablet 850 mg PO BID RF: 0 tadalafil [Cialis] 20 mg tablet 20 mg PO QDAY PRN (Reason: .) RF: 0 tamsulosin 0.4 mg capsule 0.4 mg PO BID Qty: 180 RF: 4 Follow Up Plan Follow up with: Raad Owen MD [Primary Care Provider] - Patient Disposition: Home, Self-Care Rehab Potential: Good Discharge Orders: Discharge Order (Routine); Ordered 11/08/19 Ordered By: Palmer Mark
[2019-11-08] MEDS ORDERED: METHOCARBAMOL 750 MG TABLET PO PRN (15:06)
[2019-11-08] MEDS: cefTRIAXone 2 GM in DEXTROSE 5% IN WATER 50 ML IV SCH (16:08)
[2019-11-08] MEDS: LACTULOSE 20 GM/30 ML ORAL.SOL PO PRN (16:16)
[2019-11-08] MEDS ORDERED: METHYLNALTREXONE BROMIDE 12 MG/0.6 ML SYRINGE SC SCH (19:00)
[2019-11-08] MEDS ORDERED: POTASSIUM CHLORIDE 20 MEQ TABLET PO ONE (19:02)
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
[2019-11-08] MEDS: amLODIPine 10 MG TABLET PO SCH (20:43)
[2019-11-08] MEDS: VITAMIN D3 1,000 UNIT TABLET PO SCH (20:43)
[2019-11-08] MEDS: CELECOXIB 200 MG CAPSULE PO SCH (20:44)
[2019-11-09] MEDS: cefTRIAXone 2 GM in DEXTROSE 5% IN WATER 50 ML IV SCH ×3 (00:58→22:28)
[2019-11-09] MEDS: DEXTROSE 5%-1/2NS 1,000 ML IV SCH ×3 (04:15→18:14)
[2019-11-09] MEDS: 0.9 % SODIUM CHLORIDE 10 ML SYRINGE IV SCH ×6 (04:15→20:50)
[2019-11-09] MEDS: oxyCODONE/APAP 10/325MG TABLET PO PRN ×2 (05:54→22:25)
[2019-11-09 06:54] LABS: Basophils # (Auto) 0.02 K/mcL (0.00-0.30); Basophils % (Auto) 0.2 % (0.0-2.0); Eosinophils % (Auto) 2.4 % (0.0-7.0); Granulocytes % (Auto) 76.7 % (38.0-78.0); Hematocrit 30.8 % (40.1-51.0); Lymphocytes # (Auto) 1.04 K/mcL (1.50-4.80); Lymphocytes % (Auto) 12.5 % (15.5-49.0); Mean Cell Volume 97.2 fL (80.0-100.0); Mean Corpuscular HGB Conc 32.5 g/dL (31.0-36.0); Mean Platelet Volume 10.3 fL (7.4-10.4); Monocytes # (Auto) 0.68 K/mcL (0.10-0.90); Monocytes % (Auto) 8.2 % (1.0-12.0); Platelet Count 224 K/mcL (140-440); RBC 3.17 M/mcL (4.63-6.08); Red Cell Distribution Width 13.3 % (11.5-14.5); WBC 8.3 K/mcL (4.50-11.00)
[2019-11-09 07:08] LABS: ALT/SGPT 8 U/l (0-40); AST/SGOT 16 U/l (0-37); Albumin 3.1 gm/dL (3.2-5.2); Albumin/Globulin Ratio 1.1 (1.0-2.3); Alkaline Phosphatase 52 U/L (39-117); Bilirubin,Total 0.4 mg/dL (0.0-1.0); Blood Urea Nitrogen 15 mg/dl (8-23); Calcium 8.1 mg/dl (8.6-10.4); Carbon Dioxide 26 mmol/L (22-30); Globulin 2.7 gm/dL (2.2-3.7); Glomerular Filtration Rate 84; Glucose 164 mg/dL (70-105)
[2019-11-09 07:10] LABS: Chloride 93 mmol/L (96-108)
[2019-11-09] MEDS: FERROUS SULFATE 325 MG TABLET PO SCH (07:42)
[2019-11-09] MEDS: CARVEDILOL 6.25 MG TABLET PO SCH (07:42)
[2019-11-09] MEDS: INSULIN LISPRO 1 UNIT/0.01 ML UNIT SQ SCH ×4 (07:56→22:34)
[2019-11-09] MEDS: POLYETHYLENE GLYCOL 3350 17 GM PACKET PO SCH (08:07)
[2019-11-09] MEDS: CELECOXIB 200 MG CAPSULE PO SCH ×2 (08:09→22:26)
[2019-11-09] MEDS: DOCUSATE SODIUM 100 MG CAPSULE PO SCH ×2 (08:10→22:26)
[2019-11-09] MEDS: FOLIC ACID 1 MG TABLET PO SCH (08:10)
[2019-11-09] MEDS: TAMSULOSIN 0.4 MG CAPSULE PO SCH ×2 (08:10→22:26)
[2019-11-09] MEDS: CHLORTHALIDONE 25 MG TABLET PO SCH (08:11)
[2019-11-09] MEDS: ATORVASTATIN 40 MG TABLET PO SCH (08:12)
[2019-11-09] MEDS: LISINOPRIL 20 MG TABLET PO SCH (08:12)
[2019-11-09] MEDS: EZETIMIBE 10 MG TABLET PO SCH (08:13)
[2019-11-09] MEDS ORDERED: FLEETS ADULT ENEMA PR PRN (16:19)
[2019-11-09] MEDS: LACTULOSE 20 GM/30 ML ORAL.SOL PO PRN (16:50)
--- NOTE | 2019-11-09 20:23 | Internal Med Progress Note ---
SUBJECTIVE Subjective Patient information: Note initiated : 11/09/19 at 8:19 pm Service Date, if different from initiated Date: [] Patient: Jose Leung 74 y/o M admitted on 11/05/19 for Fall. Chief Complaint: still no BM pt with soap suds enema and fleets enema this evening. awaiting bm. has been on lactulose last 24 hours. lots of bowel tones and some gas. has been up walking. feels bloated. Constitutional Vitals: Vital Signs Temp Pulse Resp BP Pulse Ox 98.4 F 75 18 131/68 95 11/09/19 16:00 11/09/19 16:00 11/09/19 16:00 11/09/19 16:00 11/09/19 16:00 Period Temp Pulse Resp BP Sys/Lucia Pulse Ox Last 24 Hr 97.5 F-99.7 F 69-94 16-18 106-143/56-68 92-95 Intake and Output 11/09/19 11/09/19 11/09/19 05:59 13:59 21:59 Intake Total 2194 149 2047 Output Total 3185 052 3960 Balance 525 -457 -385 Gen WDWN WM in NAD CV RRR Lungs CTA ABd distended full not tense or tender. lost of bowel tones throughout. Intake & Output: Intake & Output 11/09/19 11/09/19 11/09/19 05:59 13:59 21:59 Intake Total 7252 885 1608 Output Total 2714 450 5657 Balance 525 -457 -385 Intake: IV 1050 50 1000 Dextrose 5%-1/2Ns IV Solution 1 1000 1000 ,000 ml @ 100 mls/hr IV .Q10H JESS Rx#:[id number] Rocephin 2 gm In Dextrose 5% in 50 50 Water 50 ml @ 100 mls/hr IV Q12H JESS Rx#:[id number] Oral 600 118 240 Output: Void Amount 6643 999 3005 Other: Meal Lunch Urine Appearance Clear Clear Urine Color Pale Bright Yellow Urine Odor Normal Normal OBJ DATA Labs CBC & Chem 7: 11/09/19 05:35 11/09/19 05:35 Labs: Abnormal Lab Results 11/09/19 11/09/19 11/08/19 05:35 05:35 06:20 WBC RBC 3.17 L Hgb 10.0 L Hct 30.8 L MPV Gran % Lymph % (Auto) 12.5 L Gran # Lymph # (Auto) 1.04 L [place] # (Auto) Sodium 131 L Potassium Chloride 93 L BUN Glucose 164 H Hemoglobin A1c 6.4 H Calcium 8.1 L Total Protein 5.8 L Albumin 3.1 L 11/08/19 11/08/19 11/07/19 06:20 06:20 05:50 WBC 11.9 H RBC 3.34 L Hgb 10.3 L Hct 31.3 L MPV 10.9 H Gran % 80.8 H Lymph % (Auto) 10.3 L Gran # 9.61 H Lymph # (Auto) 1.22 L [place] # (Auto) 0.91 H Sodium Potassium 3.2 L Chloride 95 L BUN 25 H Glucose 163 H 234 H Hemoglobin A1c Calcium 8.2 L 7.8 L Total Protein 5.8 L Albumin 11/07/19 05:50 WBC 13.2 H RBC 3.44 L Hgb 10.6 L Hct 32.5 L MPV 10.5 H Gran % 89.6 H Lymph % (Auto) 4.6 L Gran # 11.81 H Lymph # (Auto) 0.61 L [place] # (Auto) Sodium Potassium Chloride BUN Glucose Hemoglobin A1c Calcium Total Protein Albumin Meds: Medications Acetaminophen (Tylenol) 650 mg PO Q6HP PRN; Protocol PRN Reason: Per Pain Protocol/Fever > 101 Amlodipine Besylate (Norvasc) 10 mg PO [facility] Last Admin: 11/08/19 20:43 Dose: 10 mg Documented by: Atorvastatin Calcium (Lipitor) 40 mg PO QDAY [facility] Last Admin: 11/09/19 08:12 Dose: 40 mg Documented by: Carvedilol (Coreg) 6.25 mg PO [facility] Last Admin: 11/09/19 07:42 Dose: 6.25 mg Documented by: Celecoxib (Celebrex) 200 mg PO BID [facility] Last Admin: 11/09/19 08:09 Dose: 200 mg Documented by: Chlorthalidone (Hygroton) 25 mg PO QDAY [facility] Last Admin: 11/09/19 08:11 Dose: 25 mg Documented by: Dextrose (Dextrose 50%) 0 ml IV UD PRN PRN Reason: Hypoglycemia Diagnostic Test (Pha) (Accu-Chek) 1 each FS [facility] Last Admin: 11/09/19 17:39 Dose: 1 each Documented by: Docusate Sodium (Colace) 100 mg PO BID [facility] Last Admin: 11/09/19 08:10 Dose: 100 mg Documented by: Ezetimibe (Zetia) 10 mg PO QDAY [facility] Last Admin: 11/09/19 08:13 Dose: 10 mg Documented by: Ferrous Sulfate (Ferrous Sulfate) 325 mg PO QAC [facility] Last Admin: 11/09/19 07:42 Dose: 325 mg Documented by: Folic Acid (Folic Acid) 5 mg PO QDAY [facility] Last Admin: 11/09/19 08:10 Dose: 5 mg Documented by: Glucose (Insta-Glucose) 15 gm PO PRN PRN PRN Reason: Hypoglycemia Hydromorphone HCl (Dilaudid) 0.5 mg IV Q2HP PRN; Protocol PRN Reason: Per Pain Protocol Last Admin: 11/08/19 08:25 Dose: 0.5 mg Documented by: Hydromorphone HCl (Dilaudid) 0 mg PO Q4HP PRN; Protocol PRN Reason: Per Pain Protocol Last Admin: 11/08/19 05:55 Dose: 4 mg Documented by: Dextrose/Sodium Chloride (Dextrose 5%-1/2ns Iv Solution) 1,000 mls @ 100 mls/hr IV .Q10H [facility] Last Admin: 11/09/19 18:14 Dose: 100 mls/hr Documented by: Ceftriaxone Sodium 2 gm/ (Dextrose) 50 mls @ 100 mls/hr IV Q12H [facility]; Protocol Last Infusion: 11/09/19 08:45 Dose: Infused Documented by: Insulin Human Lispro (Humalog) 0 unit SQ [facility]; Protocol Last Admin: 11/09/19 17:46 Dose: 2 unit Documented by: Lactulose (Cephulac) 10 gm PO DAILYP PRN PRN Reason: Constipation Last Admin: 11/09/19 16:50 Dose: 10 gm Documented by: Lactulose (Cephulac) 10 gm PO Q8 [facility] Lisinopril (Zestril) 40 mg PO DAILY [facility] Last Admin: 11/09/19 08:12 Dose: 40 mg Documented by: Methocarbamol (Robaxin) 750 mg PO Q6HP PRN PRN Reason: Muscle Spasm Naloxone HCl (Narcan) 0.1 mg IV Q2MIN PRN PRN Reason: Opiate Reversal Ondansetron HCl (Zofran) 4 mg IV Q6HP PRN PRN Reason: Nausea And Vomiting Last Admin: 11/06/19 18:31 Dose: 4 mg Documented by: Oxycodone/Acetaminophen (Percocet 10-325mg) 0 tab PO Q4HP PRN; Protocol PRN Reason: Per Pain Protocol Last Admin: 11/09/19 05:54 Dose: 1 tab Documented by: Polyethylene Glycol (Miralax) 17 gm PO DAILY [facility] Last Admin: 11/09/19 08:07 Dose: 17 gm Documented by: Sodium Biphosphate/Sodium Phosphate (Fleets Adult) 1 dose [place] DAILYP PRN PRN Reason: Constipation Sodium Chloride (Saline Flush) 10 ml IV Q8 [facility] Last Admin: 11/09/19 12:51 Dose: Not Given Documented by: Sodium Chloride (Saline Flush) 10 ml IV Q8 [facility] Last Admin: 11/09/19 12:52 Dose: Not Given Documented by: Tamsulosin HCl (Flomax) 0.4 mg PO BID [facility] Last Admin: 11/09/19 08:10 Dose: 0.4 mg Documented by: Throat Lozenges (Cepacol) 1 lozenge PO PRN PRN PRN Reason: Sore Throat Tramadol HCl (Ultram) 50 mg PO Q6HP PRN; Protocol PRN Reason: Pain Last Admin: 11/08/19 05:55 Dose: 50 mg Documented by: Vitamin D (Vitamin D3) 2,000 unit PO HS [facility] Last Admin: 11/08/19 20:43 Dose: 2,000 unit Documented by: A/P Assessment and plan (1) Constipation due to opioid therapy: Status: Acute Comment: yesterday started miralax. cont the colace. today received lactulose and discussed with Dr. Mark. Is ok to be up to bedside commode without the brace. The pt should wear brace for ambulating though relistor given yesterday continuing on increase bowel regimen. did pass small feces and mod gas so far. (2) L2 vertebral fracture: Status: Acute Comment: stabilized surgically. Post op therapy as per Dr. Mark (3) Spinal fracture: Status: Acute Comment: mobilize with PT Time Spent With Patient Time: Total time spent is greater than 50% in coordination of care (as documented) at patient's floor/unit and/or counseling patient: 25 mins QUALITY VTE Deep Vein Thrombosis/Pulmonary Embolism Present on Admission: No
[2019-11-09] MEDS: amLODIPine 10 MG TABLET PO SCH (22:26)
[2019-11-09] MEDS: LACTULOSE 20 GM/30 ML ORAL.SOL PO SCH (22:33)
[2019-11-09] MEDS: VITAMIN D3 1,000 UNIT TABLET PO SCH (22:33)
[2019-11-10] MEDS: DEXTROSE 5%-1/2NS 1,000 ML IV SCH ×2 (03:42→17:14)
[2019-11-10] MEDS: 0.9 % SODIUM CHLORIDE 10 ML SYRINGE IV SCH ×4 (05:27→13:31)
[2019-11-10] MEDS: LACTULOSE 20 GM/30 ML ORAL.SOL PO SCH ×2 (05:27→13:30)
[2019-11-10] MEDS: INSULIN LISPRO 1 UNIT/0.01 ML UNIT SQ SCH ×2 (08:38→12:24)
[2019-11-10] MEDS: CELECOXIB 200 MG CAPSULE PO SCH (08:42)
[2019-11-10] MEDS: EZETIMIBE 10 MG TABLET PO SCH (08:42)
[2019-11-10] MEDS: POLYETHYLENE GLYCOL 3350 17 GM PACKET PO SCH (08:42)
[2019-11-10] MEDS: FERROUS SULFATE 325 MG TABLET PO SCH (08:42)
[2019-11-10] MEDS: ATORVASTATIN 40 MG TABLET PO SCH (08:43)
[2019-11-10] MEDS: TAMSULOSIN 0.4 MG CAPSULE PO SCH (08:43)
[2019-11-10] MEDS: FOLIC ACID 1 MG TABLET PO SCH (08:43)
[2019-11-10] MEDS: CARVEDILOL 6.25 MG TABLET PO SCH (08:44)
[2019-11-10] MEDS: DOCUSATE SODIUM 100 MG CAPSULE PO SCH (08:45)
[2019-11-10] MEDS: CHLORTHALIDONE 25 MG TABLET PO SCH (08:45)
[2019-11-10] MEDS: LISINOPRIL 20 MG TABLET PO SCH (08:46)
[2019-11-10] MEDS: cefTRIAXone 2 GM in DEXTROSE 5% IN WATER 50 ML IV SCH (08:52)
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
[2019-11-10] MEDS: oxyCODONE/APAP 10/325MG TABLET PO PRN (15:41)
== END 2019-11-10 16:11 | disposition home or self-care (01) | DRG 454 ==
LOC: ED 08:12 → MEDSUR 13:11
PROVIDERS: ADMIT Internal Medicine; ATTEND Internal Medicine